=== PATIENT | male | born 1970 | race African-American/Black ===

== ENCOUNTER 2022-12-19 06:06 | Emergency (ER) | payer BC ==
[2022-12-19 06:20] VITALS: RESP 18; BMI 26.9
[2022-12-19] MEDS ORDERED: PANTOPRAZOLE SODIUM 40 MG VIAL IVPB ONE (06:55)
[2022-12-19] MEDS ORDERED: PANTOPRAZOLE SODIUM 40 MG VIAL ONE (06:58)
[2022-12-19 08:19] LABS: HEMATOCRIT 45.7 % (35.4-49); HEMOGLOBIN 15.2 G/dL (11.7-16.9); MCH 30.5 pg (25.7-33.7); MCHC 33.2 g/dl (32.0-35.9); MEAN PLT VOLUME 9.7 fl (7.5-11.1); RBC 4.97 10^6/uL (4.00-5.60); RDW 13.6 % (11.9-15.9); WHITE BLOOD COUNT 11.2 10^3/uL (4.0-10.8)
[2022-12-19 09:06] LABS: PLATELET ESTIMATE ADEQUATE
[2022-12-19 09:19] LABS: ALBUMIN 4.5 g/dl (3.4-5.0); BLOOD UREA NITROGEN 14.2 mg/dl (7-18); CALCIUM 10.1 mg/dl (8.5-10.1); CREATININE 0.9 mg/dl (0.6-1.3); POTASSIUM 3.9 mmol/L (3.5-5.1); SGOT/AST 276.7 U/L (15-37); SGPT/ALT 369.5 U/L (7-52); TOT PROT 7.2 g/dl (6.4-8.2)
[2022-12-19 09:49] VITALS: BP 104/61; PULSE 60; TEMP 98.2
[2022-12-19 10:34] LABS: BILIRUBIN,TOTAL 2.2 mg/dL (0.2-1)
== END 2022-12-19 09:58 | disposition home or self-care (01) ==
LOC: FER 06:06
PROC: 3E033NZ Introduction of Analgesics, Hypnotics, Sedatives into Peripheral Vein, Percutaneous Approach (ICD-10-PCS; principal; 2022-12-19)
DX: R07.9 Chest pain, unspecified (principal)
CPT/HCPCS: 36415; 80053; 84484; 85027; 93005; 93010; 99284-25